=== PATIENT | male | born 1985 | race Caucasian/White ===

== ENCOUNTER 2021-12-07 11:06 | Emergency (ER) | payer OTHER, SELFPAY ==
[2021-12-07 11:08] VITALS: BP 156/103; PULSE 80; RESP 17; TEMP 36.4; O2SAT 97; BMI 33.2
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
[2021-12-07] MEDS: Orphenadrine 60 MG/2 ML Ampul IM (11:35)
[2021-12-07] MEDS: Ketorolac 15 MG/ML Vial IM (11:35)
== END 2021-12-07 12:06 | disposition home or self-care (01) ==
PROVIDERS: Emergency Provider Emergency Medicine; PCP Family Medicine; Visit Provider Emergency Medicine
DX: S39.012A Strain of muscle, fascia and tendon of lower back, initial encounter (principal); K21.9 Gastro-esophageal reflux disease without esophagitis; Y93.89 Activity, other specified
CPT/HCPCS: 96372

== ENCOUNTER → 2022-08-27 | Outpatient (CLI) | payer BC, SELFPAY ==
--- NOTE | 2022-08-27 08:40 | VAS_PTH ---
PATIENT: MARIA ELENA BEAUCHAMP LOC: [facility] U#:[id number] AGE/SX: 37/M ROOM: RE08/27/[address]: Dr. Sha Gutierrez MD : 1985 BED: DIS: 08/27/2022 SPEC #: [id number] RECD: 08/27/22 09:42 STATUS: KATHY LILI #: [id number] ERIC: 08/27/22 08:[address]: Sha Gutierrez DEPT: SURGICAL PATHOLOGY RECD BY: Zhane Friend ENTERED: 08/27/22 11:23 SP TYPE: VAS OTHR DR: Dr. Brigida Voss MD Tissues: A - Vas deferens, NOS B - Vas deferens, NOS Procedures: Surgery Specimen Level II HEADER OPERATION: Bilateral vasectomy PRE-OP DIAGNOSIS: Sterilization TISSUE SUBMITTED: A ? Left vas deferens, B ? Right vas deferens MICROSCOPIC DIAGNOSIS A. Left vas deferens, partial vasectomy: Completely transected segment of vas deferens, no pathologic diagnosis. B. Right vas deferens, partial vasectomy: Completely transected segment of vas deferens, no pathologic diagnosis. WERO:vanessa 08/28/2022 MICROSCOPIC DESCRIPTION Slides are reviewed. GROSS DESCRIPTION A - Received is one container designated left vas deferens. The specimen consists of a tubular segment of sheikh soft tissue measuring 0.7 cm in length and 0.2 cm in diameter. The specimen is sectioned and submitted entirely in one cassette. B - Received is one container designated right vas deferens. The specimen consists of a tubular segment of sheikh soft tissue measuring 0.5 cm in length and 0.2 cm in diameter. The specimen is sectioned and submitted entirely in one cassette. / WERO:vanessa 08/27/2022 TC:4 CPT: 88727 x2
== END | disposition home or self-care (01) ==
LOC: LABSPEC 09:54
PROVIDERS: PCP Family Medicine; Referring Provider Surgery; Visit Provider Surgery
DX: Z98.52 Vasectomy status (principal)
CPT/HCPCS: 88302

== ENCOUNTER → 2022-10-06 | Outpatient (CLI) | payer BC, SELFPAY ==
[2022-10-06 12:12] LABS: Semen Analysis Post Vas ABSENT
[2022-10-08 09:49] LABS: Pathologist Review Reviewed
== END | disposition home or self-care (01) ==
LOC: LABSPEC 10:30
PROVIDERS: PCP Family Medicine; Referring Provider Surgery; Visit Provider Surgery
DX: Z30.2 Encounter for sterilization (principal)
CPT/HCPCS: 89321

== ENCOUNTER → 2022-10-08 | Outpatient (CLI) | payer BC, SELFPAY ==
[2022-10-08 10:47] LABS: Semen Analysis Post Vas ABSENT
[2022-10-09 09:54] LABS: Pathologist Review Reviewed
== END | disposition home or self-care (01) ==
LOC: LABSPEC 09:16
PROVIDERS: PCP Family Medicine; Referring Provider Surgery; Visit Provider Surgery
DX: Z30.2 Encounter for sterilization (principal)
CPT/HCPCS: 89321

== ENCOUNTER → 2024-12-14 | Outpatient (CLI) | payer OTHER, SELFPAY ==
--- NOTE | 2024-12-14 12:55 | ECHOD_ITS ---
Reason For Study Reason For Study: Fam Hx Procedure This was a 2D Doppler, Color Flow transthoracic echocardiogram. Exam performed in department. Left Ventricle Normal LV size. Mild concentric left ventricular hypertrophy. The left ventricular ejection fraction is 65 %. Stage 1 diastolic dysfunction. Right Ventricle Normal right ventricle. Atria The left and right atria are normal. Mitral Valve Mildly thickened anterior mitral valve leaflet. Trivial mitral valve regurgitation. Tricuspid Valve Trivial tricuspid valve insufficiency. Right ventricular systolic pressure estimated to be 37 mmHg. Aortic Valve Bicuspid aortic valve. Moderate eccentric aortic valve regurgitation. Consider NATHANIEL for further evaluation of the aortic regurgitation. Pulmonic Valve The pulmonic valve is not well visualized. Great Vessels Moderate to severely dilated aortic root. 5.[address] scan for further evaluation. Pericardium/Pleural No pericardial effusion. Medication 22 gauge I.V. with prn adaptor inserted into right arm. Performed a rapid injection of agitated mix of 9 cc saline and 1cc air to assess for atrial septal defect. MMode/2D Measurements & Calculations LVIDd: 6.1 cm IVSd: 1.3 cm Ao root diam: 5.2 cm LVIDs: 3.5 cm LVPWd: 1.5 cm RVDd: 4.1 cm FS: 42.7 % LAV(MOD-sp4): 48.6 ml LVAd ap4: 50.7 cm2 LVAd ap2: 19.6 cm2 LVLd ap4: 10.2 cm LVLd ap2: 5.5 cm EDV(MOD-sp4): 203.6 ml EDV(MOD-sp2): 55.5 ml EDV(sp4-el): 212.8 ml EDV(sp2-el): 59.3 ml LVAs ap4: 27.3 cm2 LVLs ap4: 8.4 cm ESV(MOD-sp4): 75.8 ml ESV(sp4-el): 74.8 ml EF(MOD-sp4): 62.8 % EF(sp4-el): 64.9 % SV(MOD-sp4): 127.8 ml SV(sp4-el): 138.1 ml LA A4 area: 15.8 cm2 SI(MOD-sp4): 58.8 ml/m2 LA dimension(2D): 3.7 cm RA A4 area: 19.8 cm2 Time Measurements MV dec time: 0.20 sec Doppler Measurements & Calculations MV E max derrell: 87.0 cm/sec Lat Peak E' Derrell: 13.0 cm/sec Med Peak E' Derrell: 8.9 cm/sec MV A max derrell: 59.6 cm/sec E/E' lat: 6.7 E/E' med: 9.8 MV E/A: 1.5 MV V2 max: 103.4 cm/sec MV dec slope: 441.1 cm/sec2 Ao V2 max: 119.0 cm/sec MV max P.3 mmHg Ao max P.7 mmHg MV V2 mean: 47.7 cm/sec Ao V2 mean: 78.7 cm/sec MV mean P.2 mmHg Ao mean P.8 mmHg MV V2 VTI: 36.7 cm Ao V2 VTI: 27.1 cm AV (velocity ratio): 1.1 LV V1 max: 116.6 cm/sec PA V2 max: 109.6 cm/sec TR max derrell: 281.9 cm/sec LV V1 max P.4 mmHg PA V2 mean: 78.6 cm/sec TR max P.8 mmHg LV V1 mean P.9 mmHg LV V1 mean: 78.5 cm/sec LV V1 VTI: 29.0 cm ECHO/Echo Complete Interpretation Summary Mild concentric left ventricular hypertrophy. The left ventricular ejection fraction is 65 %. Stage 1 diastolic dysfunction. Mildly thickened anterior mitral valve leaflet. Trivial mitral valve regurgitat ion. Right ventricular systolic pressure estimated to be 37 mmHg. Bicuspid aortic valve. Moderate eccentric aortic valve regurgitation. Consider NATHANIEL or cardiac MR for further evaluation of the aortic regurgitation. Moderate to severely dilated aortic root. 5.[address] scan for further evaluation. Ordering Physician: Brigida Voss Referring Physician: Brigida Voss Performed By: Funmi Guevara RCS
== END | disposition home or self-care (01) ==
PROVIDERS: PCP Family Medicine; Referring Provider Family Medicine; Visit Provider Family Medicine
DX: I35.1 Nonrheumatic aortic (valve) insufficiency (principal); Z82.79 Family history of other congenital malformations, deformations and chromosomal abnormalities; Z82.49 Family history of ischemic heart disease and other diseases of the circulatory system; Q23.81 Bicuspid aortic valve
CPT/HCPCS: 93306

== ENCOUNTER → 2025-02-07 | Outpatient (CLI) | payer OTHER, SELFPAY ==
--- OUTSIDE RECORDS SUMMARY | 2025-02-07 07:12 | XMS RPT_ITS | CCD ---
Author Organization [facility] Care Team Providers Care String Studies Director Name Role Phone Dr. Brigida Voss Primary Care Provider [phone] Dr. Brigida Voss Referring Provider Dr. Sha Gutierrez Attending Provider Brigida Voss Referring Unavailable Brigida Voss Attending Unavailable Brigida Voss Primary Care Unavailable Calli Love Attending Unavailable Brigida Voss Primary Care Unavailable Allergies Allergy Classification Reported Allergen(s) Allergy Type Date of Onset Reaction(s) Facility (2 sources) Meperidine Drug Allergy 12-07-2021 Vomiting [facility] (1 source) Meperidine Drug Allergy 09-07-2022 [facility] Repository Medications Current Medications Medication Drug Class(es) Dates Sig (Normalized) Sig (Original) omeprazole 20 mg delayed release oral capsule (1 source) Proton Pump Inhibitor Start: 08-03-2022 take 1 capsule by mouth once daily Omeprazole Magnesium (Acid Client Evaluator (Omeprazole)) 20 mg capsule,delayed release(DR/EC) Active 20 MG PO DAILY August 03, 2022 12:00am Completed/Discontinued Medications Medication Drug Class(es) Dates Sig (Normalized) Sig (Original) LORazepam 2 mg oral tablet (1 source) Benzodiazepine Start: 08-03-2022 End: 08-04-2022 take 1 tablet by mouth once Lorazepam (Ativan) 2 mg tablet Discontinued 2 MG PO ONCE 1 August 03, 2022 12:00am August 04, 2022 12:04am Take two hours before procedure oxyCODONE hydrochloride 5 mg oral tablet (1 source) Opioid Agonist Start: 08-27-2022 End: 08-30-2022 take 5 mg by mouth every four hours Oxycodone Discontinued 5 MG PO Q4H 7 3 August 27, 2022 August 30, 2022 12:04am Problems Problem Classification Problem Date Documented Da te Episodic/Chronic Contraceptive and procreative management (2 sources) Patient encounter status; Translations: [Encounter for sterilization] 09-07-2022 Episodic Residual codes; unclassified (1 source) Family history of other congenital malformations, deformations and chromosomal abnormalities; Translations: [Family history of other congenital malformations, deformations and chromosomal abnormalities] Onset: 01-09-2025 Episodic Spondylosis; intervertebral disc disorders; other back problems (2 sources) Backache; Translations: [Dorsalgia, unspecified] 12-15-2021 Episodic Sprains and strains (2 sources) Low back strain; Translations: [Strain of muscle, fascia and tendon of lower back, initial encounter] 12-15-2021 Episodic Results Test Name Value Interpretation Reference Range Facility Echo Complete 12-14-2024 Echo [facility] [address] [place] [address] Echo Complete 12/14/24 1301 MR#: [id number] Acct: [id number] Name: MARIA ELENA BEAUCHAMP Rep #: [id number] : [id number] From: Calli Love MD Attending Dr: Dr. Brigida Voss MD Status: REG [facility] Ordering Dr: Brigida Voss MD Date: 12/14/24 Location: [facility] Sex: M C Admitted: Reason For Study Reason For Study: Fam Hx Procedure This was a 2D Doppler, Color Flow transthoracic echocardiogram. Exam performed in department. Left Ventricle Normal LV size. Mild concentric left ventricular hypertrophy. The left ventricular ejection fraction is 65 %. Stage 1 diastolic dysfunction. Right Ventricle Normal right ventricle. Atria The left and right atria are normal. Mitral Valve Mildly thickened anterior mitral valve leaflet. Trivial mitral valve regurgitation. Tricuspid Valve Trivial tricuspid valve insufficiency. Right ventricular systolic pressure estimated to be 37 mmHg. Aortic Valve Bicuspid aortic valve. Moderate eccentric aortic valve regurgitation. Consider NATHANIEL for further evaluation of the aortic regurgitation. Pulmonic Valve The pulmonic valve is not well visualized. Great Vessels Moderate to severely dilated aortic root. 5.[address] scan for further evaluation. Pericardium/Pleural No pericardial effusion. Medication 22 gauge I.V. with prn adaptor inserted into right arm. Performed a rapid injection of agitated mix of 9 cc saline and 1cc air to assess for atrial septal defect. MMode/2D Measurements Calculations LVIDd: 6.1 cm IVSd: 1.3 cm Ao root diam: 5.2 cm LVIDs: 3.5 cm LVPWd: 1.5 cm RVDd: 4.1 cm FS: 42.7 % LAV(MOD-sp4): 48.6 ml LVAd ap4: 50.7 cm2 LVAd ap2: 19.6 cm2 LVLd ap4: 10.2 cm LVLd ap2: 5.5 cm EDV(MOD-sp4): 203.6 ml EDV(MOD-sp2): 55.5 ml EDV(sp4-el): 212.8 ml EDV(sp2-el): 59.3 ml LVAs ap4: 27.3 cm2 LVLs ap4: 8.4 cm ESV(MOD-sp4): 75.8 ml ESV(sp4-el): 74.8 ml EF(MOD-sp4): 62.8 % EF(sp4-el): 64.9 % SV(MOD-sp4): 127.8 ml SV(sp4-el): 138.1 ml LA A4 area: 15.8 cm2 SI(MOD-sp4): 58.8 ml/m2 LA dimension(2D): 3.7 cm RA A4 area: 19.8 cm2 Time Measurements MV dec time: 0.20 sec Doppler Measurements Calculations MV E max derrell: 87.0 cm/sec Lat Peak E' Derrell: 13.0 cm/sec Med Peak E' Derrell: 8.9 cm/sec MV A max derrell: 59.6 cm/sec E/E' lat: 6.7 E/E' med: 9.8 MV E/A: 1.5 MV V2 max: 103.4 cm/sec MV dec slope: 441.1 cm/sec2 Ao V2 max: 119.0 cm/sec MV max P.3 mmHg Ao max P.7 mmHg MV V2 mean: 47.7 cm/sec Ao V2 mean: 78.7 cm/sec MV mean P.2 mmHg Ao mean P.8 mmHg MV V2 VTI: 36.7 cm Ao V2 VTI: 27.1 cm AV (velocity ratio): 1.1 LV V1 max: 116.6 cm/sec PA V2 max: 109.6 cm/sec TR max derrell: 281.9 cm/sec LV V1 max P.4 mmHg PA V2 mean: 78.6 cm/sec TR max P.8 mmHg LV V1 mean P.9 mmHg LV V1 mean: 78.5 cm/sec LV V1 VTI: 29.0 cm ECHO/Echo Complete Interpretation Summary Mild concentric left ventricular hypertrophy. The left ventricular ejection fraction is 65 %. Stage 1 diastolic dysfunction. Mildly thickened anterior mitral valve leaflet. Trivial mitral valve regurgitation. Right ventricular systolic pressure estimated to be 37 mmHg. Bicuspid aortic valve. Moderate eccentric aortic valve regurgitation. Consider NATHANIEL or cardiac MR for further evaluation of the aortic regurgitation. Moderate to severely dilated aortic root. 5.[address] scan for further evaluation. Ordering Physician: Brigida Voss Referring Physician: Brigida Voss Performed By: Funmi Guevara RCS 12/14/24 1444 Date Calli Love MD CC: Dr. Brigida Voss MD Date Dictated: 12/14/24 1301 Date Transcribed: 12/14/24 1444 Web Site Administrator: Signed Normal [facility] Review by pathologistOrdered By: Sha Gutierrez on 10-08-2022 Pathologist review Romero (Unsp spec) [Interp] Reviewed [facility] Comment on above: Previous reported re sult: May wilberto Edited by: RGOMARILEE on 10/09/22:0953Sperms are not seen.Rashaad Maynard M.D. 10/09/22 AMENDED REPORT 10/09/22 0953 PATH REV previously reported as: July foll Spermatozoa detection in yogesh en by light microscopy post vasectomyOrdered By: Sha Gutierrez on 10-08-2022 Spermatozoa post vasectomy LM Ql (Yogesh) ABSENT [facility] Comment on above: CYTOSPIN PREPARATION USED FOR CONCENTRATIONOF SPECIMEN PRIOR TO STAINING AND EXAMINATION Review by pathologistOrdered By: Sha Gutierrez on 10-06-2022 Pathologist review Romero (Unsp spec) [Interp] Reviewed [facility] Comment on above: Previous reported re sult: May foll Edited by: RGOAMRILEE on 10/08/22:0949Sperms are not seen.Rashaad Maynard M.D. 10/08/22 AMENDED REPORT 10/08/22 0949 PATH REV previously reported as: July foll Spermatozoa detection in yogesh en by light microscopy post vasectomyOrdered By: Sha Gutierrez on 10-06-2022 Spermatozoa post vasectomy LM Ql (Yogesh) ABSENT [facility] Comment on above: CYTOSPIN PREPARATION USED FOR CONCENTRATIONOF SPECIMEN PRIOR TO STAINING AND EXAMINATION Vital Signs Date Time Vital Sign Value Performing Clinician Faci lity 08-03-2022 13:05-0400 Body height 185.[address] Brigida Voss Work Phone: [facility] 08-03-2022 13:05-0400 Body mass index (BMI) [Ratio] 31.9 kg/m2 Dr. Brigida Voss Work Phone: [facility] 08-03-2022 13:05-0400 Body temperature 97.3 [degF] Dr. Brigida Voss Work Phone: [facility] 08-03-2022 13:05-0400 Body weight 109.[address] Brigida Voss Work Phone: [facility] 08-03-2022 13:05-0400 Diastolic blood pressure 81 mm[Hg] Dr. Brigida Voss Work Phone: [facility] 08-03-2022 13:05-0400 Heart rate 88 /min Dr. Brigida Voss Work Phone: [facility] 08-03-2022 13:05-0400 Respiratory rate 18 /min Dr. Brigida Voss Work Phone: [facility] 08-03-2022 13:05-0400 Systolic blood pressure 146 mm[Hg] Dr. Brigida Voss Work Phone: [facility] 12-07-2021 11:08-0400 Body height 185.42 cm [facility] Work Phone: 12-07-2021 11:08-0400 Body mass index (BMI) [Ratio] 33.2 kg/m2 [facility] Work Phone: 12-07-2021 11:08-0400 Body temperature 97.6 [degF] [facility] Work Phone: 12-07-2021 11:08-0400 Body weight 114.3 kg [facility] Work Phone: 12-07-2021 11:08-0400 Diastolic blood pressure 103 mm[Hg] [facility] Work Phone: 12-07-2021 11:08-0400 Heart rate 80 /min [facility] Work Phone: 12-07-2021 11:08-0400 Respiratory rate 17 /min [facility] Work Phone: 12-07-2021 11:08-0400 SaO2% (BldA) [Mass fraction] 97 % [facility] Work Phone: 12-07-2021 11:08-0400 Systolic blood pressure 156 mm[Hg] [facility] Work Phone: Encounters Encounter Date Encounter Type Care Provider Facility Start: 12-14-2024 ambulatory Calli Love Facility:[facility] Start: 12-14-2024 End: 12-14-2024 ambulatory Brigida Voss Facility:[facility] Start: 10-08-[address] Brigida Voss Work Phone: [facility] Work Phone: Start: 10-06-2022 End: 10-06-[address] Brigida Voss Work Phone: [facility] Work Phone: Start: 10-06-2022 End: 10-06-[address] Brigida Voss Work Phone: [facility] Work Phone: Start: 09-07-2022 End: 09-07-[address] Brigida Voss Work Phone: [facility] Work Phone: Start: 08-27-2022 End: 08-27-[address] [facility] Start: 08-27-2022 End: 08-27-[address] Brigida Voss Work Phone: [facility] Work Phone: Start: 08-03-2022 End: 08-03-[address] Brigida Voss Work Phone: [facility] Work Phone: Start: 12-07-2021 End: 12-07-2021 Emergency department patient visit [facility] Plan of Treatment Date Care Activity Detail Author Patient Education ED Back Pain (Acute or Chronic) [facility] Work Phone: Patient referral [facility] Work Phone: Payers Date Payer Category Payer Self-pay 2024 Unknown [id number] Unknown DARA [id number] 56 [id number] Unknown DARA [id number] 10 [id number] Unknown [id number] Unknown [id number] Social History Date Type Detail Facility Start: 12-07-2021 End: 08-27-2022 Tobacco smoking status NHIS Unknown if ever smoked [facility] Start: 1985 Sex Assigned At Male [facility] Evaluation note Note Date & Type Note Facility Evaluation note No assessment information availa ble [facility] Work Phone: Hospital Discharge instructions Note Date & Type Note Facility Hospital Discharge instructions Additional Instructions Continue to perform gentle stretching. Use ice, heat [facility] Work Phone: Chief Complaint and Reason for Visit Chief Complaint back Chief Complaint VASECTOMY VASECTOMY BILATERAL VASECTOMY VASECTOMY 09/07 INT [facility] Advance Directives No Advanced Directives Records Found Advance Directive Response Recorded Date/ Time Living Will No December 07, 2021 12:05pm Power of Healthcare Architect No November 12:05pm Summary Purpose Family History No Family History Records Found Additional Source Comments Goals (unrecognized section and content) Goals may be documented in a n alternate sectionGoals may be documented in an alternate section Care Teams (unrecognized sec tion and content) Team Status: Active Member Role Status Dates Dr. Jem Avila MD Family Provider Active Dr. Brigida Voss MD Primary Care Provider Active Team Status: Inactive Member Role Status Dates Dr. Brigida Voss MD Primary Care Provider, Referrin g Provider Active Dr. Sha Gutierrez MD Attending Provider Active Team Status: Inactive Member Role Status Dates Dr. Brigida Voss MD Primary Care Provider Active Dr. Sha Gutierrez MD Attending Provider, Referr ing Provider Active Team Status: Active Member Role Status Dates Dr. Brigida Voss MD Primary Care Provider Active Dr. Sha Gutierrez MD Attending Provider, Referr ing Provider Active (unrecognized sect ion and content) No Status Records Found INFORMATION SOURCE (unrecogn ized section and content) DATE CREATED AUTHOR 01/10/2025 [facility] FOR RECORDS PERTAINING TO PATIENTS WHO ARE OR HAVE BEEN ENROLLED IN A CHEMICAL DEPENDENCY/SUBSTANCEABUSE PROGRAM, SOME INFORMATION MAY BE OMITTED. This clinical summary was aggregated from multiple sources. Caution should be exercised in using it in the provision of clinical care. This summary normalizes information from multiple sources, and as a consequence, information in this document may materially change the coding, format and clinical context of patient data. In addition, data may be omitted in some cases. CLINICAL DECISIONS SHOULD BE BASED ON THE PRIMARY CLINICAL RECORDS. [employer] provides no warranty or guarantee of the accuracy or completeness of information in this document.
[2025-02-07 09:48] LABS: AST(SGOT) 24 U/L (<=37); Alanine Aminotransfer ALT/SGPT 29 U/L (<=46); Albumin, Serum 4.7 g/dL (3.5-5.0); Alkaline Phosphatase 55 U/L (40-129); Anion Gap 9 (5-15); BUN 18 mg/dL (4-19); BUN/Creat Ratio 18.3 RATIO (10-20); Calcium,Total 9.4 mg/dL (7.6-11.0); Carbon Dioxide 26.2 mmol/L (21.0-32.0); Chloride 106 mmol/L (98-108); Globulin 2.6 g/dL (2.2-4.2); Glucose 99 mg/dL (70-99); Potassium 4.5 mmol/L (3.3-5.1)
[2025-02-07 13:02] LABS: Cholesterol 187 mg/dL (<=200); Low Density Lipoprotein Calc. 106 mg/dL; Triglycerides 55 mg/dL; Very Low Density Lipoprotein 11 mg/dL (5-40); cholesterol:hdl ratio screen 2.66
== END | disposition home or self-care (01) ==
LOC: LAB 07:08
PROVIDERS: PCP Family Medicine; Referring Provider Internal Medicine Cardiovascular Disease; Visit Provider Internal Medicine Cardiovascular Disease
DX: I77.89 Other specified disorders of arteries and arterioles (principal); I10 Essential (primary) hypertension; R94.31 Abnormal electrocardiogram [ECG] [EKG]; I77.810 Thoracic aortic ectasia; Q23.81 Bicuspid aortic valve
CPT/HCPCS: 36415; 80053; 80061; 84443

== ENCOUNTER → 2025-03-12 | Outpatient (CLI) | payer OTHER, SELFPAY ==
--- NOTE | 2025-03-12 06:20 | CT_ITS ---
PROCEDURE: CTA CHEST W/WO CONTRAST 03/12/2025 REASON FOR EXAM: ENLARGED AORTA TECHNIQUE: Procedure Code: [id number] Modality: CT Procedure: CTA CHEST W/WO CONTRAST Multiplanar Sagittal and Coronal images were obtained. CONTRAST: VOLUME: mL One or more dose reduction techniques were used (e.g., Automated exposure control, adjustment of the mA and/or kV according to patient size, use of iterative reconstruction technique). FINDINGS: The aortic root measures 5.2 cm in its greatest diameter. The ascending aorta measures 4.3 cm in its greatest diameter. The aortic arch measures 2.7 cm in its greatest diameter. The descending aorta measures 2.6 cm in its greatest diameter. Linear density in the posterior right lung base likely represent scarring or subsegmental atelectasis. The lungs are otherwise clear. The heart is normal in size. No thoracic lymphadenopathy. No acute osseous abnormality. Minimal thoracic spondylosis. Moderate amount of stool within the visualized colon. CT/CTA Chest W/WO Contrast IMPRESSION: Thoracic aortic measurements as above. Reading Location: [id number]
--- OUTSIDE RECORDS SUMMARY | 2025-03-12 06:37 | XMS RPT_ITS | CCD ---
Author Organization [facility] Care Team Providers Care School Cafeteria Cook Name Role Phone Dr. Brigida Voss Primary Care Provider Dr. Brigida Voss Referring Provider Dr. Sha Gutierrez Attending Provider [phone] Brigida Voss Referring Unavailable Brigida Voss Attending Unavailable Brigida Voss Primary Care Unavailable Calli Love Attending Unavailable Brigida Voss Primary Care Unavailable Allergies Allergy Classification Reported Allergen(s) Allergy Type Date of Onset Reaction(s) Facility (2 sources) Meperidine Drug Allergy 12-07-2021 Vomiting [facility] (1 source) Meperidine Drug Allergy 09-07-2022 [facility] Repository Medications Current Medications Medication Drug Class(es) Dates Sig (Normalized) Sig (Original) omeprazole 20 mg delayed release oral capsule (1 source) Proton Pump Inhibitor Start: 08-03-2022 take 1 capsule by mouth once daily Omeprazole Magnesium (Acid Mine Technician (Omeprazole)) 20 mg capsule,delayed release(DR/EC) Active 20 [...] Reference Range Facility Echo Complete 12-14-2024 Echo [facility] [address] [place] [address] Echo Complete 12/14/24 1301 MR#: [id number] Acct: [id number] Name: MARIA ELENA BEAUCHAMP Rep #: [id number] : 1985 39 From: Calli Love MD Attending Dr: Dr. Brigida Voss MD Status: REG [facility] Ordering Dr: Brigida Voss MD Date: 12/14/24 Location: [facility] Sex: M C Admitted: Reason For Study [...] Dictated: 12/14/24 1301 Date Transcribed: 12/14/24 1444 Computer Aided Design Designer: Signed Normal [facility] Review by pathologistOrdered By: Sha Gutierrez on 10-08-2022 Pathologist review Romero (Unsp spec) [Interp] Reviewed [facility] Comment on above: Previous reported re sult: May wilberto Edited by: RGOMARILEE on 10/09/22:0953Sperms are not seen.Rashaad Maynard M.D. 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 Brigida Voss Work Phone: [facility] 08-03-2022 13:05-0400 Body mass index (BMI) [Ratio] 31.9 kg/m2 Dr. Brigida Voss Work Phone: [facility] 08-03-2022 13:05-0400 Body temperature 97.3 [degF] Dr. Brigida Voss Work Phone: [facility] 08-03-2022 13:05-0400 Body weight 109.[address] Brigida Voss Work Phone: [facility] 08-03-2022 13:05-0400 Diastolic blood pressure 81 mm[Hg] Dr. Brigida Voss Work Phone: [facility] 08-03-2022 13:05-0400 Heart rate 88 /min Dr. Brigida Voss Work Phone: [facility] 08-03-2022 13:05-0400 Respiratory rate 18 /min Dr. Brigida Voss Work Phone: [facility] 08-03-2022 13:05-0400 Systolic blood pressure 146 mm[Hg] Dr. Brigida Voss Work Phone: [facility] 12-07-2021 11:08-0400 Body height 185.42 cm [facility] Work Phone: 12-07-2021 11:08-0400 Body mass index (BMI) [Ratio] 33.2 kg/m2 [facility] Work Phone: 12-07-2021 11:08-0400 Body temperature 97.6 [degF] [facility] Work Phone: 12-07-2021 11:08-0400 Body weight 114.3 kg [facility] Work Phone: 12-07-2021 11:08-0400 Diastolic blood pressure 103 mm[Hg] [facility] Work Phone: 12-07-2021 11:08-0400 Heart rate 80 /min [facility] Work Phone: 12-07-2021 11:08-0400 Respiratory rate 17 /min [facility] Work Phone: 12-07-2021 11:08-0400 SaO2% (BldA) [Mass fraction] 97 % [facility] Work Phone: 12-07-2021 11:08-0400 Systolic blood pressure 156 mm[Hg] [facility] Work Phone: Encounters Encounter Date Encounter Type Care Provider Facility Start: 12-14-2024 ambulatory Calli Love Facility:[facility] [place] Start: 12-14-2024 End: 12-14-2024 ambulatory Brigida Voss Facility:[facility] Start: 10-08-[address] Brigida Voss Work Phone: [facility] Work Phone: Start: 10-06-2022 End: 10-06-[address] Brigida Voss Work Phone: [facility] Work Phone: Start: 10-06-2022 End: 10-06-[address] Brigida Voss Work Phone: [facility] Work Phone: Start: 09-07-2022 End: 09-07-[address] Brigida Voss Work Phone: [facility] Work Phone: Start: 08-27-2022 End: 08-27-[address] Brig[facility] V[facility] Work [facility]: Start: 08-27-2022 End: 08-27-[address] Brigida Voss Work Phone: [facility] Work Phone: Start: 08-03-2022 End: 08-03-[address] Brigida Voss Work Phone: [facility] Work Phone: Start: 12-07-2021 End: 12-07-2021 Emergency department patient visit [facility] Plan of Treatment Date Care Activity Detail Author Patient Education ED Back Pain (Acute or Chronic) [facility] Work Phone: Patient referral [facility] Work Phone: Payers Date Payer Category Payer Self-pay 2024 Unknown [id number] Unknown DRAA [id number] 56 [id number] Unknown DARA [id number] 10 [id number] Unknown [id number] Unknown [id number] Social History Date Type Detail Facility Start: 12-07-2021 End: 08-27-2022 Tobacco smoking status NHIS Unknown if ever smoked [facility] Start: 1985 Sex Assigned At Male W [facility] Evaluation note Note Date & Type Note Facility Evaluation note No assessment information availa ble [facility] Work Phone: Hospital Discharge instructions Note Date & Type Note Facility Hospital Discharge instructions Additional Instructions Continue to perform gentle stretching. Use ice, heat [facility] Work Phone: Chief Complaint and Reason for Visit Chief Complaint back Chief Complaint VASECTOMY VASECTOMY BILATERAL VASECTOMY VASECTOMY 09/07 INT [facility] Advance Directives No Advanced Directives Records Found Advance Directive Response Recorded Date/ Time Living Will No December 07, 2021 12:05pm Power of Websphere Commerce Architect No November 12:05pm Summary Purpose Family [...] section and content) DATE CREATED AUTHOR 01/10/2025 [facility] FOR RECORDS PERTAINING TO PATIENTS WHO ARE [...] BE BASED ON THE PRIMARY CLINICAL RECORDS. [employer]. provides no warranty or guarantee of the accuracy or completeness of information in this document.
== END | disposition home or self-care (01) ==
PROVIDERS: PCP Family Medicine; Referring Provider Internal Medicine Cardiovascular Disease; Visit Provider Internal Medicine Cardiovascular Disease
DX: I77.89 Other specified disorders of arteries and arterioles (principal); Q23.81 Bicuspid aortic valve; I10 Essential (primary) hypertension; R94.31 Abnormal electrocardiogram [ECG] [EKG]; I77.810 Thoracic aortic ectasia
CPT/HCPCS: 71275; Q9967

== ENCOUNTER → 2025-03-13 | Outpatient (CLI) | payer OTHER, SELFPAY ==
--- OUTSIDE RECORDS SUMMARY | 2025-03-13 06:22 | XMS RPT_ITS | CCD ---
Author Organization [facility] Care Team Providers Care Intellectual Property Manager Name Role Phone Dr. Brigida Voss Primary Care Provider Dr. Brigida Voss Referring Provider [phone] Dr. Sha Gutierrez Attending Provider [phone] Brigida Voss Referring Unavailable Brigida Voss Attending Unavailable Brigida Voss Primary Care Unavailable Calli Love Attending Unavailable Brigida Voss Primary Care Unavailable Allergies Allergy Classification Reported Allergen(s) Allergy Type Date of Onset Reaction(s) Facility (2 sources) Meperidine Drug Allergy 12-07-2021 Vomiting [facility] (1 source) Meperidine Drug Allergy 09-07-2022 [facility] Repository Medications Current Medications Medication Drug Class(es) Dates Sig (Normalized) Sig (Original) omeprazole 20 mg delayed release oral capsule (1 source) Proton Pump Inhibitor Start: 08-03-2022 take 1 capsule by mouth once daily Omeprazole Magnesium ([employer] (Omeprazole)) 20 mg capsule,delayed release(DR/EC) Active 20 [...] Reference Range Facility Echo Complete 12-14-2024 Echo [facility] [address] [place] [address] Echo Complete 12/14/24 1301 MR#: [id number] Acct: [id number] Name: MARIA ELENA BEAUCHAMP Rep #: [id number] : 1985 39 From: Calli Love MD Attending Dr: Dr. Brigida Voss MD Status: REG [facility] Ordering Dr: Brigida Voss MD Date: 12/14/24 Location: [facility] Sex: M C Admitted: Reason For Study [...] Dictated: 12/14/24 1301 Date Transcribed: 12/14/24 1444 Nurse Reviewer: Signed Normal [facility] Review by pathologistOrdered By: Sha Gutierrez on 10-08-2022 Pathologist review Romero (Unsp spec) [Interp] Reviewed [facility] Comment on above: Previous reported re sult: May wilberto Edited by: RGOMARILEE on 10/09/22:0953Sperms are not seen.Rashaad Maynard M.D. 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 Brigida Voss Work Phone: [facility] 08-03-2022 13:05-0400 Body mass index (BMI) [Ratio] 31.9 kg/m2 Dr. Brigida Voss Work Phone: [facility] 08-03-2022 13:05-0400 Body temperature 97.3 [degF] Dr. Brigida Voss Work Phone: [facility] 08-03-2022 13:05-0400 Body weight 109.[address] Brigida Voss Work Phone: [facility] 08-03-2022 13:05-0400 Diastolic blood pressure 81 mm[Hg] Dr. Brigida Voss Work Phone: [facility] 08-03-2022 13:05-0400 Heart rate 88 /min Dr. Brigida Voss Work Phone: [facility] 08-03-2022 13:05-0400 Respiratory rate 18 /min Dr. Brigida Voss Work Phone: [facility] 08-03-2022 13:05-0400 Systolic blood pressure 146 mm[Hg] Dr. Brigida Voss Work Phone: [facility] 12-07-2021 11:08-0400 Body height 185.42 cm [facility] Work Phone: 12-07-2021 11:08-0400 Body mass index (BMI) [Ratio] 33.2 kg/m2 [facility] Work Phone: 12-07-2021 11:08-0400 Body temperature 97.6 [degF] [facility] Work Phone: 12-07-2021 11:08-0400 Body weight 114.3 kg [facility] Work Phone: 12-07-2021 11:08-0400 Diastolic blood pressure 103 mm[Hg] [facility] Work Phone: 12-07-2021 11:08-0400 Heart rate 80 /min [facility] Work Phone: 12-07-2021 11:08-0400 Respiratory rate 17 /min [facility] Work Phone: 12-07-2021 11:08-0400 SaO2% (BldA) [Mass fraction] 97 % [facility] Work Phone: 12-07-2021 11:08-0400 Systolic blood pressure 156 mm[Hg] [facility] Work Phone: Encounters Encounter Date Encounter Type Care Provider Facility Start: 12-14-2024 ambulatory Calli Love Facility:[facility] Start: 12-14-2024 End: 12-14-2024 ambulatory Brigida Voss Facility:[facility] Start: 10-08-[address] Brigida Voss Work Phone: [facility] Work Phone: Start: 10-06-2022 End: 10-06-[address] Brigida Voss Work Phone: [facility] Work Phone: Start: 10-06-2022 End: 10-06-[address] Brigida Voss Work Phone: [facility] Work Phone: Start: 09-07-2022 End: 09-07-[address] Brigida Voss Work Phone: [facility] Work Phone: Start: 08-27-2022 End: 08-27-[address] [facility] Start: 08-27-2022 End: 08-27-[address] Brigida Voss Work Phone: [facility] Work Phone: Start: 08-03-2022 End: 08-03-[address] Brigida Voss Work Phone: [facility] Work Phone: Start: 12-07-2021 End: 12-07-2021 Emergency department patient visit [facility] Plan of Treatment Date Care Activity Detail Author Patient Education ED Back Pain (Acute or Chronic) [facility] Work Phone: Patient referral [facility] Work Phone: Payers Date Payer Category Payer Self-pay 2024 Unknown [id number] Unknown DARA [id number] Unknown DARA [id number] Unknown [id number] Unknown [id number] Social History Date Type Detail Facility Start: 12-07-2021 End: 08-27-2022 Tobacco smoking status NHIS Unknown if ever smoked [facility] Start: 1985 Sex Assigned At Male [facility] Evaluation note Note Date & Type Note Facility Evaluation note No assessment information availa ble [facility] Work Phone: Hospital Discharge instructions Note Date & Type Note Facility Hospital Discharge instructions Additional Instructions Continue to perform gentle stretching. Use ice, heat [facility] Work Phone: Chief Complaint and Reason for Visit Chief Complaint back Chief Complaint VASECTOMY VASECTOMY BILATERAL VASECTOMY VASECTOMY 09/07 INT [facility] Advance Directives No Advanced Directives Records Found Advance Directive Response Recorded Date/ Time Living Will No December 07, 2021 12:05pm Power of Automotive Window T[employer] No November 12:05pm Summary Purpose Family History [...] section and content) DATE CREATED AUTHOR 01/10/2025 [facility] FOR RECORDS PERTAINING TO PATIENTS WHO ARE [...] BE BASED ON THE PRIMARY CLINICAL RECORDS. [employer] provides no warranty or guarantee of the accuracy or completeness of information in this document.
--- NOTE | 2025-03-14 12:50 | STRESSREP ---
Stress Test Report Date: 03/13/2025 Procedure: Pharmacologic stress nuclear imaging study Indications: Abnormal ECG Consent: Per the patient Procedure: The patient underwent pharmacologic (Regadenoson 0.4mg ) evaluation with a peak heart rate of 87 beats per minute (47%predicted maximal heart rate) and a peak blood pressure of 130/72 mmHg. The baseline ECG demonstrated sinus rhythm with inferior T wave inversions. The peak pharmacologic ECG was nondiagnostic secondary to baseline abnormality. There were no cardiac dysrhythmias pretest, during pharmacologic infusion, or recovery. There was no complaint of chest discomfort during pharmacologic infusion or recovery. The patient was injected with 14.6 millicuries of technetium 99m Cardiolite and subsequently rest SPECT Cardiolite nuclear imaging was obtained in the horizontal long, vertical long, and short axis views. The patient underwent pharmacologic (Regadenoson) evaluation. The patient was injected with 44.9 millicuries of technetium 99m Cardiolite and subsequently stress SPECT Cardiolite nuclear imaging was obtained in the horizontal long, vertical long, and short axis views. A gated Cardiolite study at peak stress was obtained. The examination was stopped secondary to completion of protocol. Rest and stress SPECT Cardiolite nuclear imaging status post realignment, normalization, and attenuation correction demonstrate no fixed or reversible perfusion defects. There is end systolic thickening and brightening. The gated Cardiolite study demonstrates myocardial thickening and inward wall motion. The reported LVEF is 64%. Impression: 1. Pharmacologic (Regadenoson) evaluation 2. Peak pharmacologic ECG with no diagnostic changes. 3. There were no cardiac dysrhythmias pretest, during pharmacologic infusion, or recovery. 5. Rest and stress SPECT Cardiolite nuclear imaging demonstrate relative uniform tracer uptake and myocardial perfusion appearing within normal limits. 6. The gated Cardiolite study reports an LVEF of 64%. This note was generated with [employer] software. It may contain incorrect words, spelling, and punctuation that were not noted in checking the note before signing.
== END | disposition home or self-care (01) ==
PROVIDERS: PCP Family Medicine; Referring Provider Internal Medicine Cardiovascular Disease; Visit Provider Internal Medicine Cardiovascular Disease
DX: R94.31 Abnormal electrocardiogram [ECG] [EKG] (principal); I77.810 Thoracic aortic ectasia; I77.89 Other specified disorders of arteries and arterioles; I10 Essential (primary) hypertension; Q23.81 Bicuspid aortic valve
CPT/HCPCS: 78452; 93017; A9500; A4216; J2785